=== PATIENT | male | born 1995 | race Two or more races ===

== ENCOUNTER 2020-03-19 12:56 | Emergency (ER) | payer OTHER ==
[~2020-03-19] VITALS: Ht 182.9 cm; Wt 90.9 kg
[2020-03-19] MEDS ORDERED: PERTUSS(ACELL),DIPH,TET VAC/PF 0.5 ML VIAL IM ONE (13:45)
[2020-03-19 15:13] VITALS: BP 128/69
== END 2020-03-19 15:28 | disposition home or self-care (01) ==
LOC: EMS 13:02
DX: S01.01XA Laceration without foreign body of scalp, initial encounter (principal); W22.8XXA Striking against or struck by other objects, initial encounter; Y93.89 Activity, other specified; Y92.89 Other specified places as the place of occurrence of the external cause; Y99.8 Other external cause status
CPT/HCPCS: 12001; 70450; 90471; 90715